=== PATIENT | female | born 1950 | race Caucasian/White ===

== ENCOUNTER 2017-11-30 20:33 | Emergency (ER) | payer OTHER ==
[2017-11-30 20:56] VITALS: BP 160/102; PULSE 83; RESP 16; TEMP 98.7; O2SAT 95
--- NOTE | 2017-12-01 00:14 | ED PDOC ---
Upper Extremity Pain/Injury Time Seen by Provider: 11/30/17 22:28 Chief Complaint (Nursing): Finger,Hand,&Wrist Past Medical History Vital Signs: Last Vital Signs Temp 98.7 F 11/30/17 20:54 Pulse 83 11/30/17 20:54 Resp 16 11/30/17 20:54 BP 160/102 H 11/30/17 20:54 Pulse Ox 95 11/30/17 20:54 - Allergies Allergies/Adverse Reactions: Allergies Allergy/AdvReac Type Severity Reaction Status Date / Time No Known Allergies Allergy Verified 11/30/17 20:54 - ECG O2 Sat by Pulse Oximetry: 95 Disposition - Clinical Impression Clinical Impression: Carpal fracture - Patient ED Disposition Is Patient to be Admitted: No - Disposition Referrals: Pancho Gandara MD [Medical Doctor] - Disposition: Routine/Home Disposition Time: 00:11 Condition: GOOD Additional Instructions: Ice, elevation, motrin for pain. Instructions: Wrist Fracture in Adults (ED) Forms: [employer] (Frisian)
--- NOTE | 2017-12-01 12:48 | RAD ---
PROCEDURE: Right Wrist Radiographs. HISTORY: wrist pain, FOOSH COMPARISON: None. FINDINGS: BONES: Avulsed fracture from the piece of form seen on both lateral and oblique views. Macro more to JOINTS: Normal. No dislocation. SOFT TISSUES: Soft tissue swelling attests to the acuity of the fracture. OTHER FINDINGS: None. IMPRESSION: Acute avulsion fracture from the piece of form.
== END 2017-12-01 00:07 | disposition home or self-care (01) ==
LOC: H.ER 20:33
DX: S62.101A Fracture of unspecified carpal bone, right wrist, initial encounter for closed fracture (principal); W19.XXXA Unspecified fall, initial encounter; Y92.89 Other specified places as the place of occurrence of the external cause